=== PATIENT | female | born 1995 | race Caucasian/White ===

== ENCOUNTER 2017-01-28 23:37 | Emergency (ER) | payer OTHER ==
[~2017-01-28] VITALS: Ht 154.9 cm; Wt 59.0 kg
--- NOTE | 2017-01-29 01:31 | ED GENERAL ADULT ---
History of Present Illness General Chief Complaint: Ear Complaints Stated Complaint: ? LT EAR PIERCING INFECTION Source: patient Exam Limitations: no limitations Vital Signs & Intake/Output Vital Signs & Intake/Output Vital Signs Date Time Temp Pulse Resp B/P Pulse O2 O2 Flow FiO2 Ox Delivery Rate 01/29 0140 97.1 68 18 138/86 98 Room Air 01/29 0010 96.8 54 18 144/87 979 Room Air Allergies Coded Allergies: No Known Allergies (01/29/17) Reconcile Medications Doxycycline Hyclate (Vibramycin) 100 MG CAPSULE 1 CAP PO BID CELLULITIS Triage Note: piercing of lt ear on mon, now swollen Triage Nurses Notes Reviewed? yes Onset: Abrupt Duration: day(s): Timing: recent history : No Patient currently breastfeeds: No HPI: 01/29/17 1:28 AM This 21-year-old female presents to the emergency department complaining of left ear redness, pain and swelling. The patient said she had an ear piercing done on Monday. Subsequent to that she's had redness pain and tenderness at and around the ear piercing site. She's had prior piercings to that ear and did not have a problem. The onset of the symptoms was abrupt, the duration has been several days, the severity is significant as her symptoms required her to come to the emergency department for care. She denies any past medical history. She denies any possibility of . She says that there is no drug allergies that she is aware of. On physical exam she does have some redness and tenderness to the left ear. There is no distinct abscess. She has 3 piercings in the upper aspect of her left ear. It is the lower piercing, the third one that has been the problem; she was instructed to remove earring and take doxycycline as directed. Apply warm soaks and follow-up with the ear nose and throat doctor on Monday unless the symptoms have dramatically improved. Past History Travel History Traveled to [place] past 21 day No Medical History Any Pertinent Medical History? see below for history Neurological: NONE EENT: NONE Cardiovascular: NONE Respiratory: NONE Gastrointestinal: NONE Hepatic: NONE Renal: NONE Musculoskeletal: NONE Psychiatric: NONE Endocrine: NONE Blood Disorders: NONE Cancer(s): NONE Surgical History Surgical History: non-contributory Psychosocial History What is your primary language Citizen Of [place] Tobacco Use: Never used Family History Hx Contributory? No Review of Systems Review of Systems Constitutional: Denies: fever. EENTM: Reports: see HPI. Respiratory: Denies: short of breath. Cardiovascular: Denies: chest pain. GI: Reports: no symptoms. Genitourinary: Reports: no symptoms. Musculoskeletal: Reports: no symptoms. Skin: Reports: see HPI, erythema. Neurological/Psychological: Reports: no symptoms. Hematologic/Endocrine: Reports: no symptoms. Immunologic/Allergic: Reports: no symptoms. Physical Exam Physical Exam General Appearance: well developed/nourished, alert, awake, anxious, mild distress Head: atraumatic, normal appearance Eyes: Bilateral: normal appearance, PERRL, EOMI. Ears, Nose, Throat: left ear localized erythema, only a small portion of the left helix. no distinct abscess. Neck: normal inspection, supple, full range of motion Respiratory: normal breath sounds, chest non-tender, no respiratory distress Cardiovascular: regular rate/rhythm Back: normal range of motion Extremities: normal range of motion Neurologic/Psych: no motor/sensory deficits, awake, alert, oriented x 3 Skin: intact, rash Core Measures ACS in differential dx? No CVA/TIA Diagnosis: No Severe Sepsis Present: No Septic Shock Present: No Progress Differential Diagnoses I considered the following diagnoses in my evaluation of the patient: [ cellulitis, abscess, allergic reaction, necrotizing fasciitis] Plan of Care: doxycycline as instructed, follow-up with ENT on Monday. remove the new earing. warm soaks. Initial ED EKG: none Departure Departure Disposition: HOME OR SELF CARE Condition: Stable Clinical Impression Primary Impression: Cellulitis Referrals: UNKNOWN (PCP/Family) Departure Forms: Customer Survey General Discharge Information Prescriptions: Current Visit Scripts Doxycycline Hyclate (Vibramycin) 1 CAP PO BID #[id number] CAP Critical Care Note Critical Care Note Critical Care Time: non-applicable
[2017-01-29] MEDS ORDERED: VIBRAMYCIN100 MG PO (01:32)
[2017-01-29 01:40] VITALS: BP 138/86
== END 2017-01-29 01:40 ==
LOC: ERH 23:37
DX: H60.12 Cellulitis of left external ear (principal)